=== PATIENT | female | born 1965 | race African-American/Black ===

== ENCOUNTER → 2018-02-05 | Outpatient (CLI) | payer BC, OTHER ==
[~2018-02-05] VITALS: Ht 160 cm; Wt 93.4 kg
[~2018-02-05] MED LIST: ADDERALL 30 MG30 MG PO; ALORA1 EAC1 TOP; ZOCOR20 MG PO
--- NOTE | ~2018-02-05 | CATHLAB ---
[facility] [address] [place] [address] INVASIVE PROCEDURE REPORT Name: CAITLYNFAYELennox LEE [id number] Admission: 02/05/18 Attend Phys: George Jimenez Discharge: Date of : 63 Date of Service: 02/05/18 1425 Report #: [id number] THIS REPORT FOR: //name// APPROVED REPORT Study performed: 02/05/2018 12:07:59 Patient Details Patient Status: Out-Patient Room #: The patient is a 52 year-old female Event Personnel George Chiang Manager Sales Training, Mehrdad Adan RN, Sammi Onofre Greenwood, Christine RTLuis Monitor, Jayjay Mcelroy Monitor Procedures Performed Art Access - R femoral artery* Left Heart Cath w/or w/o Coronaries [id number] [facility] [address] Initial Mod Sed Same Phys/QHP 5y 186848 Hemostasis with Manual pressure, revision of conscious sedation Indication Chest pain Procedure Narrative The Right Groin^ was infiltrated with 1% Lidocaine subcutaneous anesthesia. A PINNACLE 4FR Sheath #[id number] sheath was inserted into the RFA^. Coronary angiography was performed using coronary diagnostic catheters. The right coronary system was accessed and visualized with a JR4 catheter. The left coronary system was accessed and visualized with a JL4 catheter. The left ventricle was accessed and visualized with a JR4 catheter. Left ventricular/Aortic Valve gradient assessed via catheter pullback. Hemostasis was obtained with manual pressure following sheath removal without any complications. The patient tolerated the procedure well and there were no complications associated with the procedure. There was no hematoma. Intraoperative Conscious Sedation Sedation start time: 12:15 Case end Time: 12:31 Versed 3 mg Fluoro Time: 3.[address] [facility] [address] [place] [address] INVASIVE PROCEDURE REPORT Name: FAYE BRADY [facility]: [facility] [id number] Admission: 02/05/18 Attend Phys: George Jimenez Discharge: Date of : 63 Date of Service: 02/05/18 1425 Report #: [id number] Dose: DAP 4064.20 cGycm2 540 mGy Contrast Type and Amount: Omnipaque 40 ml Coronary Angiography The patient's coronary anatomy is right dominant. Diagnostic Cath Left Main Left main is essentially in existence with a common ostium of the left circumflex and left anterior descending artery LAD Moderate caliber type III vessel which courses in the anterior interventricular sulcus tapering as it looks the apex and terminates in the posterior aspect of the left ventricle and a quite small in diameter. Diagonal 1 VESSEL without significant high-grade lesions noted Circumflex Moderate caliber vessel which courses laterally giving rise to a bifurcating marginal branch. The inferior limb of this bifurcation has a 50% stenosis which is not flow-limiting. OM1 Bifurcating vessel with luminal irregularities except for the inferior lesion of the bifurcation which has a 50% nonflow limiting eccentric lesion Right Coronary Large-caliber vessel normal origin courses in the AV groove giving rise in RV marginal branches is small in diameter and free of high-grade disease. The vessel then continues to the crux of the heart rate gives rise to a small to moderate caliber posterior descending artery and terminates as a posterior wall branch which she is quite narrow in its diameter and has moderate diffuse lesions noted there. R PDA Mall caliber vessel without significant high-grade lesions but only luminal irregularities Left Ventriculography Left Ventriculography was not performed. Hemodynamics The aortic pressure is 146/78 mmHg with a mean of 110 mmHg. The left ventricular pressure is 139/12 mmHg with a mean of mmHg. The left ventricular end diastolic pressure is 19 mmHg. Conclusion 1. Coronary disease moderate involving a 50% lesion of the circumflex as stated above and distal RCA 2. Normal hemodynamics [facility] [address] [place] [address] INVASIVE PROCEDURE REPORT Name: CAITLYNFAYELennox LEE Room #: REG [facility]#: [id number] Admission: 02/05/18 Attend Phys: George Jimenez Discharge: Date of : 63 Date of Service: 02/05/18 1425 Report #: [id number] Recommendations Cardiac Risk Reduction Program <ELECTRONICALLY SIGNED> By: George Chiang MD 02/05/18 1425 1425 1425 George Chiang MD /INF
--- NOTE | ~2018-02-05 | H ---
[facility] [place] [address] HISTORY AND PHYSICAL Name: FAYE BRADY [id number] Admission: 02/05/18 Attend Phys: George Chiang Discharge: Date of : 63 Report #: [id number] THIS REPORT FOR: //name// CC: George Chiang Lan Murillo DATE OF SERVICE: 02/05/2018 HISTORY OF PRESENT ILLNESS: This is a very pleasant female who presented for evaluation of chest discomfort. She underwent noninvasive evaluation as an outpatient, which yielded a region suspicious for ischemia. Discussion of further management was carried forth and invasive diagnostic studies were recommended. PHYSICAL EXAMINATION: GENERAL: A well-developed white female, resting comfortably in no acute distress. HEENT: Normocephalic, atraumatic. Pupils are equal, round, reactive to light and accommodation. Extraocular muscles are intact. Sclerae and conjunctivae are anicteric. NECK: JVD is normal. Carotid upstrokes are bilaterally symmetrical. No bruits are heard. No thyromegaly. No lymphadenopathy. LUNGS: Clear to auscultation. No wheezes, rhonchi or crackles. No CVA tenderness. CARDIAC: Demonstrates a regular rhythm. Normal first and second heart sounds. No ventricular or atrial gallops, no rubs noted. No murmurs. No lifts or heaves, PMI normal. ABDOMEN: Soft, nontender, nondistended. Normal bowel sounds. EXTREMITIES: Without cyanosis, clubbing or edema. Distal pulses are intact. DTR symmetrical. NEUROLOGIC: Cranial nerves 2-12 are grossly normal and symmetrical. PSYCHIATRIC: Alert, oriented with normal affect. SKIN: Warm and dry. IMPRESSION: 1. Chest pain with noninvasive studies consistent with ischemia. Risks, complications and alternatives of cath, angioplasty and conscious sedation have been discussed with the patient; she voices understanding and wishes to proceed. 2. No other change in her history and physical examination has occurred since her last visit in the office. By: 1207 [id number] George Chiang MD /nt
[2018-02-05 09:43] VITALS: BP 122/60
== END | disposition home or self-care (01) ==
LOC: CATH 06:20
DX: I25.10 Atherosclerotic heart disease of native coronary artery without angina pectoris (principal); K21.9 Gastro-esophageal reflux disease without esophagitis; M79.7 Fibromyalgia; E66.09 Other obesity due to excess calories; Z91.018 Allergy to other foods; Z79.899 Other long term (current) drug therapy; Z90.710 Acquired absence of both cervix and uterus; Z98.890 Other specified postprocedural states

== ENCOUNTER → 2019-01-25 | Outpatient (CLI) | payer BC, OTHER | LOC: ULTRA 09:43 | DX: R60.0 Localized edema (principal); M79.89 Other specified soft tissue disorders; M79.662 Pain in left lower leg ==

== ENCOUNTER → 2019-04-07 | Outpatient (CLI) | payer BC, OTHER | LOC: RAD 02:48 | DX: Z12.31 Encounter for screening mammogram for malignant neoplasm of breast (principal) ==

== ENCOUNTER 2019-04-16 01:38 | Emergency (ER) | payer BC, OTHER ==
[~2019-04-16] VITALS: Ht 160 cm; Wt 90.7 kg
[2019-04-16] MEDS ORDERED: VITAMIN D5000 UNIT PO (02:01)
[2019-04-16] MEDS ORDERED: CO Q-1010 MG (02:02)
[2019-04-16] MEDS ORDERED: GINSENG COMPLE1 EACH PO (02:03)
[2019-04-16 02:32] LABS: ABSOLUTE NEUTROPHILS 2.7 thou/uL (1.4-8.2); BASOPHILS 0.9 % (0.0-2.0); EOSINOPHILS 3.6 % (0.0-3.0); HEMOGLOBIN 12.6 gm/dL (12.0-15.0); LYMPHOCYTES 45.8 % (24.0-44.0); MCH 27.6 pg (26.0-34.0); MCHC 33.1 g/dL (28.0-37.0); MCV 83.4 fL (80.0-100.0); MONOCYTES 8.7 % (1.0-8.0); PLATELET COUNT 257 thou/uL (150-400); RBC 4.56 mil/uL (4.20-5.00); RDW 12.5 % (10.5-14.5); WBC 6.7 thou/uL (4.0-11.0)
[2019-04-16 02:36] LABS: ANION GAP 7 mmol/L (7-16); BUN 14 mg/dL (7-18); CALCIUM 9.2 mg/dL (8.5-10.1); CHLORIDE 105 mmol/L (98-107); CO2 26 mmol/L (21-32); GLUCOSE 112 mg/dL (74-106); POTASSIUM 4.2 mmol/L (3.5-5.1); SODIUM 138 mmol/L (136-145)
[2019-04-16 02:44] LABS: TROPONIN-I <0.06 ng/mL (<0.06)
[2019-04-16] MEDS ORDERED: VENTOLIN HFA 1818 GM INH (04:39)
[2019-04-16 04:58] VITALS: BP 119/44
--- NOTE | 2019-04-16 14:46 | EKG ---
[facility] [address] [place] [address] ELECTROCARDIOGRAM REPORT Name: FAYE BRADY [id number] Admission: 04/16/19 Attend Phys: Discharge: 04/16/19 Date of : 63 Report #: [id number] THIS REPORT FOR: //name// [facility] ED Test Date: 2019-04-16 Test Time: 01:45:02 Pat Name: FAYE BRADY Department: Room: Gender: F Cook [employer]per [employer]: TARA : 1965 Requested By: Talia Whitaker Order Number: [id number] MD: George Jaimes Measurements Intervals [place] Rate: 72 P: 60 DE: 141 QRS: 22 QRSD: 88 T: 24 QT: 412 QTc: 451 Interpretive Statements Sinus rhythm Baseline wander in lead(s) I,II,aVR Compared to ECG 07/14/2006 11:31:53 Inferior Q waves no longer present Q waves no longer present T-wave abnormality no longer present Electronically Signed On 04-16-2019 14:46:27 CDT by George Jaimes [email or web address] <ELECTRONICALLY SIGNED> By: George Jaimes MD 04/16/19 1446 0145 0145 George Jaimes MD /CARMELINA
== END 2019-04-16 05:01 | disposition home or self-care (01) ==
LOC: ER 01:38
PROVIDERS: Emergency Medicine
DX: J40 Bronchitis, not specified as acute or chronic (principal); M79.7 Fibromyalgia; Z88.5 Allergy status to narcotic agent; Z88.4 Allergy status to anesthetic agent; Z91.040 Latex allergy status; Z90.710 Acquired absence of both cervix and uterus; Z90.89 Acquired absence of other organs

== ENCOUNTER → 2020-05-04 | Outpatient (CLI) | payer BC, OTHER ==
[~2020-05-04] MED LIST changes: +CO Q-1010 MG; +GINSENG COMPLE1 EACH PO; +VENTOLIN HFA 1818 GM INH; +VITAMIN D5000 UNIT PO
== END ==
LOC: RAD 14:01
PROVIDERS: ATTEND Family Medicine
DX: Z12.31 Encounter for screening mammogram for malignant neoplasm of breast (principal)

== ENCOUNTER → 2020-06-09 | Outpatient (CLI) | payer BC | LOC: LAB 14:13 | PROVIDERS: ATTEND Nurse Practitioner | DX: Z20.828 Contact with and (suspected) exposure to other viral communicable diseases (principal) ==

== ENCOUNTER 2020-06-12 16:06 | Emergency (ER) | payer BC ==
[~2020-06-12] VITALS: Ht 162.6 cm; Wt 93.0 kg
[2020-06-12 17:06] LABS: BASOPHILS 0.2 % (0.0-2.0); EOSINOPHILS 1.9 % (0.0-3.0); HEMATOCRIT 38.4 % (37.0-47.0); HEMOGLOBIN 12.7 gm/dL (12.0-15.0); LYMPHOCYTES 47.9 % (24.0-44.0); MCH 27.4 pg (26.0-34.0); PLATELET COUNT 238 thou/uL (150-400); RBC 4.62 mil/uL (4.20-5.00); RDW 13.4 % (10.5-14.5)
[2020-06-12 17:14] LABS: ANION GAP 9 mmol/L (7-16); BUN 11 mg/dL (7-18); CALCIUM 8.5 mg/dL (8.5-10.1); CHLORIDE 108 mmol/L (98-107); CO2 28 mmol/L (21-32); GLUCOSE 91 mg/dL (74-106); SODIUM 145 mmol/L (136-145)
[2020-06-12 17:25] LABS: ALBUMIN 3.7 g/dL (3.4-5.0); MAGNESIUM 1.9 mg/dL (1.8-2.4); SGOT 14 U/L (15-37); SGPT 21 U/L (30-65); TOTAL BILIRUBIN 0.4 mg/dL (0.2-1.0); TOTAL PROTEIN 7.6 g/dL (6.4-8.2); TROPONIN-I <0.06 ng/mL (<0.06)
[2020-06-12 19:54] LABS: AMP/METHAMP Negative (Negative); BARBITURATES Negative (Negative); BENZODIAZEPINES Negative (Negative); COCAINE Negative (Negative); METHADONE Negative (Negative); OPIATES Negative (Negative); PCP Negative (Negative)
[2020-06-12 21:24] LABS: URINE BILIRUBIN NEGATIVE (Negative); URINE BLOOD NEGATIVE (Negative); URINE CLARITY CLEAR; URINE COLOR YELLOW; URINE GLUCOSE-RANDOM* NEGATIVE (Negative); URINE KETONES NEGATIVE (Negative); URINE LEUKOCYTES-REFLEX NEGATIVE (Negative); URINE NITRITE-REFLEX NEGATIVE (Negative); URINE PROTEIN (DIPSTICK) NEGATIVE (Negative); URINE SPECIFIC GRAVITY >= 1.030 (1.005-1.035); URINE UROBILINOGEN 0.2 E.U./dl (0.2-1.0)
[2020-06-12] MEDS ORDERED: CYCLOBENZAPRINE5 MG PO (21:34)
[2020-06-12 21:52] VITALS: BP 124/76
--- NOTE | 2020-06-13 07:31 | EKG ---
[facility] [place] [address] ELECTROCARDIOGRAM REPORT Name: CAITLYNFAYE DASILVARANCE [facility] [id number] Admission: 06/12/20 Attend Phys: Discharge: 06/12/20 Date of : 63 Report #: [id number] THIS REPORT FOR: cc: Lan Murillo MD, Neal A. MD Santiago, Patrick MD [facility] ~ THIS REPORT FOR: //name// [facility] ED Test Date: 2020-06-12 Test Time: 17:00:06 Pat Name: FAYE BRADY Department: Room: Gender: F Rating Clerk: NO : 1965 Requested By: Jaspreet Salvador Order Number: [id number] MD: Ole Simon Measurements Intervals [place] Rate: 62 P: 58 MN: 168 QRS: 29 QRSD: 86 T: 24 QT: 434 QTc: 441 Interpretive Statements Sinus rhythm Compared to ECG 04/16/2019 01:45:02 No significant changes Electronically Signed On 06-13-2020 7:31:27 SCHEDULING CLERK by Ole Simon [email or web address] <ELECTRONICALLY SIGNED> By: Ole Simon MD, FACC 06/13/20 07 99 99 Ole Simon MD, [facility] /EPI
== END 2020-06-12 21:52 | disposition home or self-care (01) ==
LOC: ER 16:06
PROVIDERS: Emergency Medicine; Physician Assistant
DX: R25.2 Cramp and spasm (principal); R11.0 Nausea; R53.83 Other fatigue; R10.30 Lower abdominal pain, unspecified; M79.7 Fibromyalgia; R43.9 Unspecified disturbances of smell and taste; M25.511 Pain in right shoulder; Z20.828 Contact with and (suspected) exposure to other viral communicable diseases; Z90.711 Acquired absence of uterus with remaining cervical stump; Z90.89 Acquired absence of other organs; Z79.899 Other long term (current) drug therapy; Z88.5 Allergy status to narcotic agent; Z88.8 Allergy status to other drugs, medicaments and biological substances; Z91.040 Latex allergy status

== ENCOUNTER 2021-03-20 16:54 | Emergency (ER) | payer OTHER, BC ==
[~2021-03-20] VITALS: Ht 162.6 cm; Wt 97.5 kg
[~2021-03-20 16:54] MED LIST changes: +CYCLOBENZAPRINE5 MG PO
[2021-03-20] MEDS ORDERED: FLANAX220 MG PO (18:51)
[2021-03-20] MEDS ORDERED: FEXMID7.5 MG PO (18:51)
[2021-03-20 19:12] VITALS: BP 153/82
== END 2021-03-20 19:12 | disposition home or self-care (01) ==
LOC: ER 16:54
DX: S16.1XXA Strain of muscle, fascia and tendon at neck level, initial encounter (principal); S29.012A Strain of muscle and tendon of back wall of thorax, initial encounter; I10 Essential (primary) hypertension; M79.7 Fibromyalgia; Z90.710 Acquired absence of both cervix and uterus; Z90.89 Acquired absence of other organs; Z98.890 Other specified postprocedural states; Z79.51 Long term (current) use of inhaled steroids; Z79.899 Other long term (current) drug therapy; Z88.5 Allergy status to narcotic agent; Z88.8 Allergy status to other drugs, medicaments and biological substances; Z88.6 Allergy status to analgesic agent; Z91.040 Latex allergy status; V89.2XXA Person injured in unspecified motor-vehicle accident, traffic, initial encounter; Y93.89 Activity, other specified; Y92.89 Other specified places as the place of occurrence of the external cause; Y99.8 Other external cause status

== ENCOUNTER → 2021-05-30 | Outpatient (CLI) | payer OTHER ==
[~2021-05-30] MED LIST changes: +FEXMID7.5 MG PO; +FLANAX220 MG PO
== END ==
LOC: CAT 10:51
PROVIDERS: ATTEND Family Medicine
DX: Z13.6 Encounter for screening for cardiovascular disorders (principal); I25.10 Atherosclerotic heart disease of native coronary artery without angina pectoris; E78.00 Pure hypercholesterolemia, unspecified

== ENCOUNTER → 2021-05-30 | Outpatient (CLI) | payer BC | LOC: NUC 10:22 → BC 10:22 | PROVIDERS: ATTEND Family Medicine | DX: Z12.31 Encounter for screening mammogram for malignant neoplasm of breast (principal) ==